=== PATIENT | male | born 1950 | race Caucasian/White ===

== ENCOUNTER → 2017-01-08 | Outpatient (CLI) | payer MEDICARE ==
--- NOTE | 2017-01-08 16:56 | XR ---
EXAMINATION TYPE: XR chest 2V DATE OF EXAM: 01/08/2017 COMPARISON: NONE HISTORY: Cough and shortness of breath TECHNIQUE: Frontal and lateral views of the chest are obtained. FINDINGS: There is no focal air space opacity, pleural effusion, or pneumothorax seen. The cardiac silhouette size is within normal limits. Prominent lung volumes suggests underlying COPD. The osseous structures are intact. IMPRESSION: No acute cardiopulmonary process.
== END | disposition home or self-care (01) ==
LOC: RADXRYALE 15:46
PROVIDERS: ATTEND Physician Assistant Medical
DX: F17.200 Nicotine dependence, unspecified, uncomplicated (principal); R05 Cough; R03.0 Elevated blood-pressure reading, without diagnosis of hypertension
CPT/HCPCS: 71020

== ENCOUNTER → 2018-04-25 | Outpatient (CLI) | payer MEDICARE ==
--- NOTE | 2018-04-25 19:11 | US ---
EXAMINATION TYPE: US bladder DATE OF EXAM: 04/25/2018 COMPARISON: NONE CLINICAL HISTORY: 67-year-old male R35.1 Nocturia. TECHNIQUE: Multiple sonographic images of the bladder are obtained. FINDINGS: Only the left ureteral jet is visualized. The bladder is only partially distended initially and 50 mL. At this volume, the patient felt the urg e to urinate. There is prostatic enlargement noted with soft tissue impressing on to the posterior bladder base. Post Void Residual Volume: 0 mL Only the left ureteral jet is seen during the course of the exam. Extrusion Process Operator notes: volume of partially filled bladder is 49.5 ml. Patient feeling urge to "go". Enla rged prostate seen deforming flour of bladder. Patient emptied bladder completely, no residual image d. IMPRESSION: 1. Possible hyperactive bladder. Patient felt the urge to urinate at a volume of 50 mL. 2. There is complete emptying after the patient voids arguing against urinary retention. 3. This is despite the enlarged prostate gland impressing on to the posterior bladder base.
== END | disposition home or self-care (01) ==
LOC: RADUSWWP 15:18
PROVIDERS: ATTEND Family Medicine
DX: N40.0 Benign prostatic hyperplasia without lower urinary tract symptoms (principal)
CPT/HCPCS: 76857

== ENCOUNTER → 2018-09-19 | Outpatient (CLI) | payer MEDICARE ==
--- NOTE | 2018-09-19 16:45 | CT ---
CT CHEST FOR PULMONARY EMBOLISM. EXAMINATION TYPE: CT angio chest DATE OF EXAM: 09/19/2018 INDICATION: Elevated D-dimer and abnormal pulmonary function test. CT DLP: 576 mGycm, Automated exposure control for dose reduction was used. CONTRAST: Patient injected with 65ml mL of Isovue 370. COMPARISON: None TECHNIQUE: CT of the chest is performed on a spiral scan at 2 mm thick sections. Study is performed with intravenous contrast timed for evaluation for pulmonary embolism. This will limit additional po rtions of the evaluation. 3-D MIP images reconstructed by the technologist are reviewed on the compu ter in the coronal and sagittal planes. FINDINGS: No persistent filling defects are evident to suggest an acute pulmonary embolism. No mediastinal or hilar adenopathy enlarged by CT criteria is evident. A few small shotty lymph node s are within the mediastinum and axillary regions. The ascending aorta diameter at the level of the m ain pulmonary artery is 3.5 cm. The main pulmonary artery diameter at the bifurcation is 2.7 cm. Lung windows are clear. Limited CT section through the upper abdomen. Gallstones within the gallbladder neck. IMPRESSIONS: 1. Cholelithiasis. 2. No acute pulmonary embolism.
== END ==
LOC: RADCTMAIN 13:53
PROVIDERS: ATTEND Family Medicine
DX: R94.2 Abnormal results of pulmonary function studies (principal); R79.1 Abnormal coagulation profile
CPT/HCPCS: 82565; 84520; 71275; 36415; Q9967

== ENCOUNTER → 2018-10-02 | Outpatient (CLI) | payer MEDICARE ==
--- NOTE | 2018-10-02 14:53 | US ---
EXAMINATION TYPE: US venous doppler duplex LE DATE OF EXAM: 10/02/2018 2:01 PM COMPARISON: NONE CLINICAL HISTORY: R60.0 Leg swelling. leg edema for a while now, no h/o dvt SIDE PERFORMED: Bilateral TECHNIQUE: The lower extremity deep venous system is examined utilizing real time linear array sonog lisa with graded compression, doppler sonography and color-flow sonography. VESSELS IMAGED: External Iliac Vein (EIV) Common Femoral Vein Deep Femoral Vein Greater Saphenous Vein * Femoral Vein Popliteal Vein Small Saphenous Vein * Proximal Calf Veins (* superficial vessels) Grayscale, color doppler, spectral doppler imaging performed of the deep veins of the lower extremiti es. There is normal flow, compressibility, vascular waveforms. Right Leg: Appears negative for DVT Left Leg: Appears negative for DVT IMPRESSION: No sonographic evidence of deep venous thrombosis within either lower extremity.
== END | disposition home or self-care (01) ==
LOC: RADUSWWP 13:11
PROVIDERS: ATTEND Family Medicine
DX: R60.0 Localized edema (principal)
CPT/HCPCS: 93970

== ENCOUNTER 2018-10-18 16:48 | Emergency (ER) | payer MEDICARE ==
[2018-10-18 16:54] VITALS: BP 121/76; PULSE 63; RESP 18; TEMP 97.6
--- NOTE | 2018-10-18 17:26 | ED ---
General Adult HPI - General Chief complaint: Dizziness Stated complaint: dizziness Time Seen by Provider: 10/18/18 17:05 Source: patient, RN notes reviewed, old records reviewed Mode of arrival: wheelchair Limitations: no limitations - History of Present Illness Initial comments: 68-year-old male patient passed no history of COPD, cardiac catheterization with stent, hypertension presents to ED after having an approximately two-minute episode of sensation of room spinning around him. Patient also secondary complaint of approximately 2 months of waxing and waning paresthesias in upper and lower extremities. Patient has been undergoing investigations by his primary care provider for this complaint. Patient was scheduled to undergo a CT of his abdomen and his pelvis today when walking in to get his CT he had a sensation of the room spinning about him. Patient states this lasted approximately 2 minutes. Patient denies having this sensation before. Patient denies all other complaints at this time. Patient denies any chest pain shortness of breath abdominal pain nausea vomiting diarrhea. Patient denies any current dizziness, changes in vision, facial droop or upper or lower extremity weakness. Systemic: Pt denies fatigue, myalgia, fever/chills, rash. Pt denies weakness, night sweats, weight loss. Neuro: Pt denies headache, visual disturbances, syncope or pre-syncope. HEENT: Pt denies ocular discharge or irritation, otalgia, rhinorrhea, pharyngitis or notable lymphadenopathy. Cardiopulmonary: Pt denies chest pain, SOB, heart palpitations, dyspnea on exertion. Abdominal/GI: Pt denies abdominal pain, n/v/d. : Pt denies dysuria, burning w/ urination, frequency/urgency. Denies new onset urinary or bowel incontinence. MSK: Pt denies myalgia, loss of strength or function in extremities. Neuro: Pt denies new onset weakness, paresthesias. - Related Data Previous Rx's Medication Instructions Recorded Meclizine [Antivert] 25 mg PO Q6H PRN #20 tab 10/18/18 Allergies Allergy/AdvReac Type Severity Reaction Status Date / Time No Known Allergies Allergy Verified 10/18/18 16:54 Review of Systems ROS Statement: Those systems with pertinent positive or pertinent negative responses have been documented in the HPI. ROS Other: All systems not noted in ROS Statement are negative. Past Medical History Past Medical History: Hypertension, Myocardial Infarction ([place]) History of Any Multi-Drug Resistant Organisms: None Reported Past Surgical History: Heart Catheterization With Stent Additional Past Surgical History / Comment(s): wrist Past Psychological History: Unable to Obtain Smoking Status: Current every day smoker Past Alcohol Use History: None Reported Past Drug Use History: None Reported General Exam - General Exam Comments Initial Comments: Constitutional: NAD, AOX3, Pt has pleasant affect. HEENT: NC/AT, trachea midline, neck supple, no lymphadenopathy. Posterior pharynx non erythematous, without exudates. External ears appear normal, without discharge. Mucous membranes moist. Eyes PERRLA, EOM intact. There is no scleral icterus. No pallor noted. Cardiopulmonary: RRR, no murmurs, rubs or gallops, no JVD noted. Lungs CTAB in anterior and posterior rodriguez. No peripheral edema. Abdominal exam: Abdomen soft and non-distended. Abdomen non-tender to palpation in all 4 quadrants. Bowel sounds active in LLQ. No hepatosplenomegaly. No ecchymosis Neuro: CN II-XII intact. No nuchal rigidity. NIH 0. MSK: No posterior calf tenderness bilaterally, homans sign negative bilaterally. Posterior tibialis and radial pulse +2 bilaterally. Sensation intact in upper and lower extremities. Full active ROM in upper and lower extremities, 5/5 stregnth. Limitations: no limitations Course Vital Signs 10/18/18 16:49 Temperature 97.6 F Pulse Rate 63 Respiratory 18 Rate Blood Pressure 121/76 O2 Sat by Pulse 97 Oximetry Medical Decision Making - Medical Decision Making Prior to workup patient was to be discharged AGAINST MEDICAL ADVICE. Patient states he feels asymptomatic were not like to receive any further evaluation. Patient will be prescribed Antivert for possible vertigo. Explained to patient risks of discharge AMA prior to workup including . Patient verbalized understanding. Patient to follow up with primary care provider tomorrow. Patient will return to ER if condition worsens. - Lab Data Result diagrams: 10/18/18 17:49 10/18/18 17:49 Lab Results 10/18/18 10/18/18 10/18/18 Range/Units 17:49 17:49 17:49 WBC 10.4 (3.8-10.6) k/uL RBC 5.23 (4.30-5.90) m/uL Hgb 14.5 (13.0-17.5) gm/dL Hct 44.9 (39.0-53.0) % MCV 85.7 (80.0-100.0) fL MCH 27.6 (25.0-35.0) pg MCHC 32.2 (31.0-37.0) g/dL RDW 14.6 (11.5-15.5) % Plt Count 263 (150-450) k/uL Neutrophils % 69 % Lymphocytes % 17 % Monocytes % 7 % Eosinophils % 4 % Basophils % 1 % Neutrophils # 7.2 (1.3-7.7) k/uL Lymphocytes # 1.8 (1.0-4.8) k/uL Monocytes # 0.7 (0-1.0) k/uL Eosinophils # 0.5 (0-0.7) k/uL Basophils # 0.1 (0-0.2) k/uL Sodium 138 (137-145) mmol/L Potassium 5.1 (3.5-5.1) mmol/L Chloride 107 (98-107) mmol/L Carbon Dioxide 20 L (22-30) mmol/L Anion Gap 11 mmol/L BUN 72 H (9-20) mg/dL Creatinine 2.56 H (0.66-1.25) mg/dL Est GFR (CKD-EPI)AfAm 28 (>60 ml/min/1.73 sqM) Est GFR (CKD-EPI)NonAf 25 (>60 ml/min/1.73 sqM) Glucose 115 H (74-99) mg/dL Calcium 9.2 (8.4-10.2) mg/dL Total Bilirubin 0.5 (0.2-1.3) mg/dL AST 21 (17-59) U/L ALT 19 L (21-72) U/L Alkaline Phosphatase 84 (38-126) U/L Troponin I <0.012 (0.000-0.034) ng/mL Total Protein 7.8 (6.3-8.2) g/dL Albumin 4.7 (3.5-5.0) g/dL Disposition Clinical Impression: Dizziness Disposition: Left Against Medical Advice Condition: Undetermined Instructions (If sedation given, give patient instructions): Dizziness (ED), Vertigo (ED) Additional Instructions: Patient to adhere to previously discussed treatment plan and will take medication(s) as directed. Patient to follow up with PCP in 1-2 days. Patient to return to ED if symptoms do not improve. Return to ER if condition worsens in any way. Prescriptions: Meclizine [Antivert] 25 mg PO Q6H PRN #20 tab PRN Reason: Dizziness Is patient prescribed a controlled substance at d/c from ED?: No Referrals: Fred Vega MD [Primary Care Provider] - 1-2 days
[2018-10-18 18:05] LABS: Basophils # (A) 0.1 k/uL (0-0.2); Basophils % (A) 1 %; Eosinophils # (A) 0.5 k/uL (0-0.7); Eosinophils % (A) 4 %; HCT 44.9 % (39.0-53.0); HGB 14.5 gm/dL (13.0-17.5); Lymphocytes # (A) 1.8 k/uL (1.0-4.8); Lymphocytes % (A) 17 %; MCH 27.6 pg (25.0-35.0); MCHC 32.2 g/dL (31.0-37.0); MCV 85.7 fL (80.0-100.0); Mean Platelet Volume 7.4; Monocytes # (A) 0.7 k/uL (0-1.0); Monocytes % (A) 7 %; Neutrophils # (A) 7.2 k/uL (1.3-7.7); Neutrophils % (A) 69 %; Platelet Count 263 k/uL (150-450); RBC 5.23 m/uL (4.30-5.90); RDW 14.6 % (11.5-15.5); WBC 10.4 k/uL (3.8-10.6)
[2018-10-18 18:11] LABS: Albumin 4.7 g/dL (3.5-5.0); Calcium 9.2 mg/dL (8.4-10.2); Potassium 5.1 mmol/L (3.5-5.1); Total Bilirubin 0.5 mg/dL (0.2-1.3); Total Protein 7.8 g/dL (6.3-8.2)
== END 2018-10-18 18:55 | disposition left against medical advice (07) ==
LOC: EC 16:48
DX: R42 Dizziness and giddiness (principal); R20.2 Paresthesia of skin; F17.200 Nicotine dependence, unspecified, uncomplicated; I25.2 Old myocardial infarction; Z95.5 Presence of coronary angioplasty implant and graft
CPT/HCPCS: 36415; 80053; 84484; 85025; 99284

== ENCOUNTER → 2018-10-25 | Outpatient (CLI) | payer MEDICARE ==
--- NOTE | 2018-10-25 15:56 | MR ---
EXAMINATION TYPE: MR lumbar spine wo/w con DATE OF EXAM: 10/25/2018 COMPARISON: None HISTORY: Low back pain / Radiculopathy, lumbar TECHNIQUE: Multiplanar, multisequence images of the lumbar spine were acquired utilizing 11.5 mL intravenous Sebastien avist gadolinium contrast. L1-L2: Normal disc appearance without desiccation. No herniation, protrusion or disc bulging. No ca nal stenosis is present. Foramina are patent bilaterally. L2-L3: Mild posterior disc bulge causes only slight anterior mass effect on the thecal sac. No signif icant foraminal encroachment or canal stenosis. L3-L4: Normal disc appearance without desiccation. No herniation, protrusion or disc bulging. No ca nal stenosis is present. Foramina are patent bilaterally. There is some mild facet arthropathy. L4-L5: Normal disc appearance without desiccation. No herniation, protrusion or disc bulging. No ca nal stenosis is present. Foramina are patent bilaterally. L5-S1: Normal disc appearance without desiccation. No herniation, protrusion or disc bulging. No ca nal stenosis is present. Foramina are patent bilaterally. Lumbar segments are intact. No paraspinal masses are identified. Conus medullaris has a normal appe arance. Lumbar vertebral bodies show preserved height and alignment. There is minimal multilevel spon dylosis and endplate discogenic marrow signal change. Some loss of disc signal at intervertebral leve ls compatible with disc desiccation. Vacuum phenomenon suspected at L2-3 disc space. There is no sign ificant spinal stenosis. Focus of increased signal on T1 and T2 weighted sequences in the L2 vertebra l body shows enhancement consistent with hemangioma the skeletal IMPRESSION: Only mild degenerative disc disease.
== END ==
LOC: RADMRIMAIN 10-19 13:16
PROVIDERS: ATTEND Family Medicine
DX: M54.5 Low back pain (principal); M54.16 Radiculopathy, lumbar region; M51.36 Other intervertebral disc degeneration, lumbar region
CPT/HCPCS: 74176; 72158; A9585

== ENCOUNTER → 2018-10-25 | Outpatient (CLI) | payer MEDICARE ==
--- NOTE | 2018-10-25 16:18 | CT ---
EXAMINATION TYPE: CT abdomen pelvis wo con DATE OF EXAM: 10/25/2018 COMPARISON: None HISTORY: abdominal pain and distention CT DLP: 1150.0 mGycm Automated exposure control for dose reduction was used. TECHNIQUE: Helical acquisition of images from the lung bases through the pelvis. Patient received or al contrast only. FINDINGS: Lack of intravenous contrast compromise sensitivity. LUNG BASES: No significant abnormality is appreciated. AORTA: No significant abnormality is appreciated. LIVER/GB: There is a gallstone neck of the gallbladder. Liver shows no mass. PANCREAS: No significant abnormality is seen. SPLEEN: No significant abnormality is seen. ADRENALS: No significant abnormality is seen. KIDNEYS: Cortical cysts are present bilaterally. There is a calcification present at the upper pole t he right kidney punctate be vascular, there is no hydronephrosis. No ureteral calcification. REPRODUCTIVE ORGANS: Prostate shows associated calcification. URINARY BLADDER: There is high attenuation present within the bladder which is indeterminate. Findin gs may be due to contrast-enhanced exam of the lumbar spine performed same date. BOWEL: Diverticular changes noted in the sigmoid colon. No evident appendicitis. FREE AIR: No Free Air is visible. ASCITES: None visible. PELVIC ADENOPATHY: None visualized. RETROPERITONEAL ADENOPATHY: No Retroperitoneal Adenopathy visible. OSSEOUS STRUCTURES: Mild degenerative disc changes visualized spine. IMPRESSION: DIVERTICULOSIS. CHOLELITHIASIS. NONCONTRAST EXAM. FINDINGS IN THE BLADDER DESCRIBED.
== END | disposition home or self-care (01) ==
LOC: RADCTMAIN 10-18 15:57
PROVIDERS: ATTEND Family Medicine
DX: Z53.9 Procedure and treatment not carried out, unspecified reason (principal)
CPT/HCPCS: 74176

== ENCOUNTER 2022-08-15 15:58 | Emergency (ER) | payer MEDICARE ==
[2022-08-15 16:09] VITALS: RESP 18
--- NOTE | 2022-08-15 16:16 | ED ---
Syncope HPI - General Chief Complaint: Syncope Stated Complaint: SYNCOPE Time Seen by Provider: 08/15/22 16:01 Source: patient Mode of arrival: EMS Limitations: no limitations - History of Present Illness Initial Comments: This patient is a 71-year-old man who presents to have evaluation after syncopal episode. The patient states she has been having episodes going back years and no one can get to the bottom of that. He states that generally happens is that he has a coughing spell feels faint and passes out. Today's episode occurred while he was lying in bed. Patient states that he developed a coughing fit, felt awful and then passed out. The patient denies having any pain in the chest when this occurs. He did not note any palpitations or skipped beats. MD Complaint: loss of consciousness Onset/Timin -: hour(s) Prodromal Symptoms: vision changes -: second(s) Witnessed: no Injuries Sustained Associated with Event: None Current Symptoms: back to baseline Context: at rest, other (After coughing episode) Treatments Prior to Arrival: none - Related Data Home Medications Medication Instructions Recorded Confirmed Albuterol Inhaler [Ventolin Hfa 1 - 2 puff INHALATION RT-Q6H PRN 12/23/18 08/15/22 Inhaler] Budesonide/Formoterol Fumarate 2 puff INHALATION RT-BID PRN 12/23/18 08/15/22 [Symbicort 160-4.5 Mcg Inhaler] lisinopriL [Zestril] 20 mg PO DAILY 12/23/18 08/15/22 Atorvastatin [Lipitor] 40 mg PO DAILY 08/15/22 08/15/22 Furosemide [Lasix] 40 mg PO DAILY 08/15/22 08/15/22 Metoprolol Succinate (ER) [Toprol 50 mg PO DAILY 08/15/22 08/15/22 Xl] amLODIPine [Norvasc] 10 mg PO DAILY 08/15/22 08/15/22 Allergies Allergy/AdvReac Type Severity Reaction Status Date / Time No Known Allergies Allergy Verified 08/15/22 17:55 Review of Systems ROS Statement: Those systems with pertinent positive or pertinent negative responses have been documented in the HPI. ROS Other: All systems not noted in ROS Statement are negative. Constitutional: Denies: fever, chills, weakness Eyes: Denies: vision change Respiratory: Reports: as per HPI, cough. Denies: dyspnea, wheezes, hemoptysis Cardiovascular: Reports: syncope. Denies: chest pain, palpitations, edema Gastrointestinal: Denies: abdominal pain, nausea, vomiting, diarrhea Genitourinary: Denies: dysuria, hematuria Musculoskeletal: Denies: back pain Skin: Denies: rash Neurological: Denies: headache, weakness, numbness, confusion Past Medical History Past Medical History: COPD, Hypertension, Myocardial Infarction ([place]) Last Myocardial Infarction Date:: 2000 History of Any Multi-Drug Resistant Organisms: None Reported Past Surgical History: Heart Catheterization With Stent Additional Past Surgical History / Comment(s): RT CATARACT REMOVED Past Anesthesia/Blood Transfusion Reactions: No Reported Reaction Date of Last Stent Placement:: 2000 Past Psychological History: No Psychological Hx Reported Smoking Status: Current every day smoker Past Alcohol Use History: None Reported Past Drug Use History: None Reported - Past Family History Mother Family Medical History: No Reported History General Exam Limitations: no limitations General appearance: alert, in no apparent distress Head exam: Present: atraumatic, normocephalic Eye exam: Present: normal appearance. Absent: scleral icterus, conjunctival injection ENT exam: Present: normal oropharynx Neck exam: Present: normal inspection, full ROM Respiratory exam: Present: wheezes (Trace expiratory wheeze). Absent: respiratory distress, rales, rhonchi, stridor, accessory muscle use, decreased breath sounds, prolonged expiratory Cardiovascular Exam: Present: regular rate, normal rhythm, normal heart sounds. Absent: systolic murmur, diastolic murmur, rubs, gallop GI/Abdominal exam: Present: soft. Absent: distended, tenderness, guarding, rebound, rigid, mass Extremities exam: Present: normal inspection, normal capillary refill. Absent: pedal edema, calf tenderness Back exam: Present: normal inspection. Absent: CVA tenderness (R), CVA tend erness (L) Neurological exam: Present: alert Skin exam: Present: warm, dry, intact, normal color. Absent: rash Course Vital Signs 08/15/22 08/15/22 08/15/22 16:01 16:23 18:12 Temperature 98.7 F Pulse Rate 86 89 85 Respiratory 18 Rate Blood Pressure 137/77 137/77 110/64 O2 Sat by Pulse 96 94 L 96 Oximetry 08/15/22 18:29 Temperature 98.2 F Pulse Rate 85 Respiratory 18 Rate Blood Pressure 110/64 O2 Sat by Pulse 98 Oximetry EKG Findings - EKG Results: EKG: interpreted by CARA STRANGE, sinus rhythm (Rate 86 bpm), normal axis, normal QRS, normal ST/T, no acute changes Medical Decision Making - Medical Decision Making Patient 71-year-old man here with syncopal episode after coughing episode. The patient has had a number of these going back for years. His workup here not remarkable. 12-lead ECG shows sinus rhythm, he did not have any palpitations or chest pain. The patient had chest x-ray which I interpreted as not showing acute infiltrate, congestive heart failure, or pneumothorax. We discussed further evaluation and treatment including roofer apprentice to see if his cough can be moderated. The patient declines admission stating he would rather go home and see a specialist as an outpatient. We discussed return parameters as well. Was pt. sent in by a medical professional or institution (, PA, SUPERVISOR COOLER SERVICE, urgent care, hospital, or residential...) When possible be specific @ -[No] Did you speak to anyone other than the patient for history (EMS, parent, family, police, friend...)? What history was obtained from this source @ -[No] Did you review nursing and triage notes (agree or disagree)? Why? @ -[I reviewed and agree with nursing and triage notes] Were old charts reviewed (outside hosp., previous admission, EMS record, old EKG, old radiological studies, urgent care reports/EKG's, residential records)? Report findings @ -[No old charts were reviewed] Differential Diagnosis (chest pain, altered mental status, abdominal pain women, abdominal pain men, vaginal bleeding, weakness, fever, dyspnea, syncope, headache, dizziness, GI bleed, back pain, seizure, CVA, palpatations, mental health, musculoskeletal)? @ -[Differential Syncope: Valvular disease, hypertrophic cardiomyopathy, pulmonary embolism, tamponade, tachycardia, bradycardia, MN, hypovolemia, hemorrhage, dissection, anemia, intracranial hemorrhage, seizure, hypoglycemia, carbon monoxide poisoning, this is not meant to be an all-inclusive list. EKG interpreted by me (3pts min.). @ -[As above] X-rays interpreted by me (1pt min.). @ -[As above CT interpreted by me (1pt min.). @ -[None done] U/S interpreted by me (1pt. min.). @ -[None done] What testing was considered but not performed or refused? (CT, X-rays, U/S, labs)? Why? @ -[None] What meds were considered but not given or refused? Why? @ -[None] Did you discuss the management of the patient with other professionals (professionals i.e. Dr., PA, SUPERVISOR CO[employer], lab, RT, psych nurse, forensic social worker, dental financial coordinator, teacher, chief investment officer, immigration case manager)? Give summary @ -[No] Was smoking cessation discussed for >3mins.? @ -[yes Was critical care preformed (if so, how long)? @ -[No] Were there social determinants of health that impacted care today? How? (Homelessness, low income, unemployed, alcoholism, drug addiction, transportation, low edu. Level, literacy, decrease access to med. care, group home, rehab)? @ -[No] Was there de-escalation of care discussed even if they declined (Discuss DNR or withdrawal of care, Hospice)? DNR status @ -[No] What co-morbidities impacted this encounter? (DM, HTN, Smoking, COPD, CAD, Cancer, CVA, ARF, Chemo, Hep., AIDS, mental health diagnosis, sleep apnea, morbid obesity)? @ -[COPD Was patient admitted / discharged? Hospital course, mention meds given and route, prescriptions, significant lab abnormalities, going to OR and other pertinent info. @ -[I did recommend admission mainly in relation to patient's COPD, but the patient declined stating he will follow have close follow-up as directed Undiagnosed new problem with uncertain prognosis? @ -[No] Drug Therapy requiring intensive monitoring for toxicity (Heparin, Nitro, Insulin, Cardizem)? @ -[No] Were any procedures done? @ -[No] Diagnosis/symptom? @ -[1. COPD exacerbation 2. Syncopal episode Acute, or Chronic, or Acute on Chronic? @ -[1. Acute on chronic 2. Acute Uncomplicated (without systemic symptoms) or Complicated (systemic symptoms)? @ -[Complicated Side effects of treatment? @ -[No] Exacerbation, Progression, or Severe Exacerbation? @ -[No] Poses a threat to life or bodily function? How? (Chest pain, [place], [place], pneumonia, PE, COPD, DKA, ARF, appy, cholecystitis, CVA, Diverticulitis, Homicidal, Suicidal, threat to staff... and all critical care pts) @ -[Undetermined, though suspect there is risk to life, patient declines to stay - Lab Data Result diagrams: 08/15/22 16:21 08/15/22 16:21 Lab Results 08/15/22 08/15/22 08/15/22 Range/Units 16:21 16:21 16:21 WBC 11.4 H (3.8-10.6) k/uL RBC 5.81 (4.30-5.90) m/uL Hgb 16.5 (13.0-17.5) gm/dL Hct 50.8 (39.0-53.0) % MCV 87.3 (80.0-100.0) fL MCH 28.3 (25.0-35.0) pg MCHC 32.4 (31.0-37.0) g/dL RDW 13.4 (11.5-15.5) % Plt Count 275 (150-450) k/uL MPV 7.5 Neutrophils % 69 % Lymphocytes % 19 % Monocytes % 8 % Eosinophils % 3 % Basophils % 1 % Neutrophils # 7.8 H (1.3-7.7) k/uL Lymphocytes # 2.1 (1.0-4.8) k/uL Monocytes # 0.9 (0-1.0) k/uL Eosinophils # 0.3 (0-0.7) k/uL Basophils # 0.1 (0-0.2) k/uL PT 10.3 (9.0-12.0) sec INR 1.0 (<1.2) APTT 24.6 (22.0-30.0) sec Sodium 141 (137-145) mmol/L Potassium 4.4 (3.5-5.1) mmol/L Chloride 103 (98-107) mmol/L Carbon Dioxide 28 (22-30) mmol/L Anion Gap 10 mmol/L BUN 27 H (9-20) mg/dL Creatinine 1.61 H (0.66-1.25) mg/dL Est GFR (CKD-EPI)AfAm 49 (>60 ml/min/1.73 sqM) Est GFR (CKD-EPI)NonAf 42 (>60 ml/min/1.73 sqM) Glucose 156 H (74-99) mg/dL Plasma Lactic Acid Kory (0.7-2.0) mmol/L Calcium 9.5 (8.4-10.2) mg/dL Total Bilirubin 0.7 (0.2-1.3) mg/dL AST 25 (17-59) U/L ALT 27 (4-49) U/L Alkaline Phosphatase 111 (38-126) U/L Troponin I (0.000-0.034) ng/mL Total Protein 7.7 (6.3-8.2) g/dL Albumin 4.6 (3.5-5.0) g/dL Serum Alcohol mg/dL 08/15/22 08/15/22 08/15/22 Range/Units 16:21 16:46 16:46 WBC (3.8-10.6) k/uL RBC (4.30-5.90) m/uL Hgb (13.0-17.5) gm/dL Hct (39.0-53.0) % MCV (80.0-100.0) fL MCH (25.0-35.0) pg MCHC (31.0-37.0) g/dL RDW (11.5-15.5) % Plt Count (150-450) k/uL MPV Neutrophils % % Lymphocytes % % Monocytes % % Eosinophils % % Basophils % % Neutrophils # (1.3-7.7) k/uL Lymphocytes # (1.0-4.8) k/uL Monocytes # (0-1.0) k/uL Eosinophils # (0-0.7) k/uL Basophils # (0-0.2) k/uL PT (9.0-12.0) sec INR (<1.2) APTT (22.0-30.0) sec Sodium (137-145) mmol/L Potassium (3.5-5.1) mmol/L Chloride (98-107) mmol/L Carbon Dioxide (22-30) mmol/L Anion Gap mmol/L BUN (9-20) mg/dL Creatinine (0.66-1.25) mg/dL Est GFR (CKD-EPI)AfAm (>60 ml/min/1.73 sqM) Est GFR (CKD-EPI)NonAf (>60 ml/min/1.73 sqM) Glucose (74-99) mg/dL Plasma Lactic Acid Kory 1.4 (0.7-2.0) mmol/L Calcium (8.4-10.2) mg/dL Total Bilirubin (0.2-1.3) mg/dL AST (17-59) U/L ALT (4-49) U/L Alkaline Phosphatase (38-126) U/L Troponin I 0.013 (0.000-0.034) ng/mL Total Protein (6.3-8.2) g/dL Albumin (3.5-5.0) g/dL Serum Alcohol <10 mg/dL Disposition Clinical Impression: Syncope, COPD exacerbation Disposition: HOME SELF-CARE Condition: Good Instructions (If sedation given, give patient instructions): Syncope (ED) Is patient prescribed a controlled substance at d/c from ED?: No Referrals: Fred Vega MD [Primary Care Provider] - 1-2 days Shankar Ortiz MD [STAFF PHYSICIAN] - 1-2 days
[2022-08-15 16:32] LABS: Basophils # (A) 0.1 k/uL (0-0.2); Basophils % (A) 1 %; Eosinophils # (A) 0.3 k/uL (0-0.7); Eosinophils % (A) 3 %; HCT 50.8 % (39.0-53.0); HGB 16.5 gm/dL (13.0-17.5); Lymphocytes # (A) 2.1 k/uL (1.0-4.8); Lymphocytes % (A) 19 %; MCH 28.3 pg (25.0-35.0); MCHC 32.4 g/dL (31.0-37.0); MCV 87.3 fL (80.0-100.0); Mean Platelet Volume 7.5; Monocytes # (A) 0.9 k/uL (0-1.0); Monocytes % (A) 8 %; Neutrophils # (A) 7.8 k/uL (1.3-7.7); Neutrophils % (A) 69 %; Platelet Count 275 k/uL (150-450); RBC 5.81 m/uL (4.30-5.90); RDW 13.4 % (11.5-15.5); WBC 11.4 k/uL (3.8-10.6)
[2022-08-15 16:40] LABS: Partial Thromboplastin Time 24.6 sec (22.0-30.0); Prothrombin Time 10.3 sec (9.0-12.0)
[2022-08-15 16:43] LABS: Albumin 4.6 g/dL (3.5-5.0); Calcium 9.5 mg/dL (8.4-10.2); Potassium 4.4 mmol/L (3.5-5.1); Total Bilirubin 0.7 mg/dL (0.2-1.3); Total Protein 7.7 g/dL (6.3-8.2)
--- NOTE | 2022-08-15 17:00 | XR ---
EXAMINATION TYPE: XR chest 2V DATE OF EXAM: 08/15/2022 COMPARISON: 01/08/2017 HISTORY: Syncope TECHNIQUE: 2 views FINDINGS: Heart and mediastinum are normal. Lungs are clear. Diaphragm is normal. Bony thorax is inta ct. IMPRESSION: Normal chest. No change.
[2022-08-15] MEDS ORDERED: SODIUM CHLORIDE 0.9% 500 ML 500 ML IV STA (17:17)
[2022-08-15 18:14] VITALS: BP 110/64; PULSE 85
[2022-08-15 18:31] VITALS: TEMP 98.2
== END 2022-08-15 18:31 | disposition home or self-care (01) ==
LOC: EC 15:58
DX: J44.1 Chronic obstructive pulmonary disease with (acute) exacerbation (principal); R55 Syncope and collapse; I10 Essential (primary) hypertension; I25.2 Old myocardial infarction; F17.200 Nicotine dependence, unspecified, uncomplicated; Z79.51 Long term (current) use of inhaled steroids; Z79.899 Other long term (current) drug therapy
CPT/HCPCS: 36415; 93005; 80053; 83605; 84484; 85025; 85610; 85730; 71046; 99285; G0480; 80320

== ENCOUNTER 2023-07-21 14:40 | Emergency (ER) | payer MEDICARE ==
--- NOTE | 2023-07-21 14:52 | ED ---
General Adult HPI - General Source: patient, RN notes reviewed <Malik Maria - Last Filed: 07/21/23 14:52> <Enedina Cabrera - Last Filed: 07/21/23 18:04> - General Stated complaint: Cough Time Seen by Provider: 07/21/23 14:52 - History of Present Illness Initial comments: Patient is a 72-year-old male presenting to ER with chief complaint of hemoptysis. Patient states he has been out of his blood pressure medication for weeks now. Does not know if he is on a blood thinner. He states he is feeling "off" (Malik Maria) - Related Data Home Medications Medication Instructions Recorded Confirmed Albuterol Inhaler [Ventolin Hfa 1 - 2 puff INHALATION RT-Q6H PRN 12/23/18 08/15/22 Inhaler] Budesonide/Formoterol Fumarate 2 puff INHALATION RT-BID PRN 12/23/18 08/15/22 [Symbicort 160-4.5 Mcg Inhaler] Previous Rx's Medication Instructions Recorded Albuterol Nebulized [Ventolin 2.5 mg INHALATION Q4H PRN #75 ml 07/21/23 Nebulized] Atorvastatin [Lipitor] 40 mg PO DAILY #30 tab 07/21/23 Codeine Phosphate/Guaifenesin 5 ml PO Q6H 3 Days #60 ml 07/21/23 [Codeine Phosphate/Guaifenesin 10-100 mg/5 ml] Furosemide [Lasix] 40 mg PO DAILY #30 tab 07/21/23 Metoprolol Succinate (ER) [Toprol 50 mg PO DAILY #30 tab 07/21/23 Xl] amLODIPine [Norvasc] 10 mg PO DAILY #30 tab 07/21/23 lisinopriL [Zestril] 20 mg PO DAILY #30 tab 07/21/23 predniSONE [Deltasone] 20 mg PO BID #10 tab 07/21/23 Allergies Allergy/AdvReac Type Severity Reaction Status Date / Time No Known Allergies Allergy Verified 08/15/22 17:55 Review of Systems ROS Other: All systems not noted in ROS Statement are negative. <Malik Maria - Last Filed: 07/21/23 14:52> ROS Other: All systems not noted in ROS Statement are negative. <Enedina Cabrera - Last Filed: 07/21/23 18:04> ROS Statement: Those systems with pertinent positive or pertinent negative responses have been documented in the HPI. Past Medical History Past Medical History: COPD, Hypertension, Myocardial Infarction ([place]) Last Myocardial Infarction Date:: 2000 History of Any Multi-Drug Resistant Organisms: None Reported Past Surgical History: Heart Catheterization With Stent Additional Past Surgical History / Comment(s): RT CATARACT REMOVED Past Anesthesia/Blood Transfusion Reactions: No Reported Reaction Date of Last Stent Placement:: 2000 Past Psychological History: No Psychological Hx Reported Smoking Status: Current every day smoker Past Alcohol Use History: None Reported Past Drug Use History: None Reported - Past Family History Mother Family Medical History: No Reported History <Malik Maria - Last Filed: 07/21/23 14:52> General Exam <Malik Maria - Last Filed: 07/21/23 14:52> - General Exam Comments Initial Comments: Visual Physical Exam Vital signs reviewed General: Well-appearing, nontoxic, no acute distress. Head: Normocephalic, atraumatic Eyes: PERRLA, EOMI ENT: Airway patent Chest: Nonlabored breathing Skin: No visual rash, normal skin tone Neuro: Alert and oriented 3 Musculoskeletal: No gross abnormalities (Malik Maria) Course Vital Signs 07/21/23 14:59 Temperature 98.5 F Pulse Rate 85 Respiratory 20 Rate Blood Pressure 237/103 O2 Sat by Pulse 97 Oximetry Medical Decision Making <Malik Maria - Last Filed: 07/21/23 14:52> - Lab Data Result diagrams: 07/21/23 15:43 07/21/23 15:43 <Enedina Cabrera - Last Filed: 07/21/23 18:04> - Medical Decision Making I performed the quick note portion of this chart. Electronically signed by Malik Maria PA-C (Malik Maria) - Lab Data Lab Results 07/21/23 07/21/23 07/21/23 Range/Units 15:43 15:43 15:43 WBC 9.4 (3.8-10.6) k/uL RBC 5.62 (4.30-5.90) m/uL Hgb 15.7 (13.0-17.5) gm/dL Hct 48.4 (39.0-53.0) % MCV 86.1 (80.0-100.0) fL MCH 28.0 (25.0-35.0) pg MCHC 32.5 (31.0-37.0) g/dL RDW 14.4 (11.5-15.5) % Plt Count 209 (150-450) k/uL MPV 7.9 PT 10.3 (10.0-12.5) sec INR 0.9 (<1.2) APTT 25.2 (22.0-30.0) sec D-Dimer 0.58 (<0.60) mg/L FEU Sodium 139 (137-145) mmol/L Potassium 4.5 (3.5-5.1) mmol/L Chloride 106 (98-107) mmol/L Carbon Dioxide 25 (22-30) mmol/L Anion Gap 8 mmol/L BUN 23 H (9-20) mg/dL Creatinine 1.22 (0.66-1.25) mg/dL Est GFR (CKD-EPI)AfAm 68 (>60 ml/min/1.73 sqM) Est GFR (CKD-EPI)NonAf 59 (>60 ml/min/1.73 sqM) Glucose 123 H (74-99) mg/dL Calcium 9.2 (8.4-10.2) mg/dL Total Bilirubin 0.7 (0.2-1.3) mg/dL AST 25 (17-59) U/L ALT 26 (4-49) U/L Alkaline Phosphatase 98 (38-126) U/L Total Protein 7.3 (6.3-8.2) g/dL Albumin 4.4 (3.5-5.0) g/dL Influenza Type A (PCR) (Not Detectd) Influenza Type B (PCR) (Not Detectd) RSV (PCR) (Not Detectd) SARS-CoV-2 (PCR) (Not Detectd) 07/21/23 Range/Units 15:43 WBC (3.8-10.6) k/uL RBC (4.30-5.90) m/uL Hgb (13.0-17.5) gm/dL Hct (39.0-53.0) % MCV (80.0-100.0) fL MCH (25.0-35.0) pg MCHC (31.0-37.0) g/dL RDW (11.5-15.5) % Plt Count (150-450) k/uL MPV PT (10.0-12.5) sec INR (<1.2) APTT (22.0-30.0) sec D-Dimer (<0.60) mg/L FEU Sodium (137-145) mmol/L Potassium (3.5-5.1) mmol/L Chloride (98-107) mmol/L Carbon Dioxide (22-30) mmol/L Anion Gap mmol/L BUN (9-20) mg/dL Creatinine (0.66-1.25) mg/dL Est GFR (CKD-EPI)AfAm (>60 ml/min/1.73 sqM) Est GFR (CKD-EPI)NonAf (>60 ml/min/1.73 sqM) Glucose (74-99) mg/dL Calcium (8.4-10.2) mg/dL Total Bilirubin (0.2-1.3) mg/dL AST (17-59) U/L ALT (4-49) U/L Alkaline Phosphatase (38-126) U/L Total Protein (6.3-8.2) g/dL Albumin (3.5-5.0) g/dL Influenza Type A (PCR) Not Detected (Not Detectd) Influenza Type B (PCR) Not Detected (Not Detectd) RSV (PCR) Not Detected (Not Detectd) SARS-CoV-2 (PCR) Not Detected (Not Detectd) Disposition <Malik Maria - Last Filed: 07/21/23 14:52> Is patient prescribed a controlled substance at d/c from ED?: Yes When asked, does pt state using other controlled substances?: No If prescribed controlled substance>3 days was MAPS reviewed?: Prescribed <3 Days Time of Disposition: 18:03 <Enedina Cabrera - Last Filed: 07/21/23 18:04> Clinical Impression: Hemoptysis, COPD (chronic obstructive pulmonary disease), Bronchospasm Disposition: HOME SELF-CARE Condition: Stable Instructions (If sedation given, give patient instructions): Coughing Up Blood (Hemoptysis) (ED) Additional Instructions: Please use the breathing treatments every 4 hours. Start taking the steroids on Sunday. Take the cough syrup if you want. Resume your blood pressure medications. If you do not have improvement in your symptoms in 48 hours, return to the emergency department Prescriptions: Codeine Phosphate/Guaifenesin [Codeine Phosphate/Guaifenesin 10-100 mg/5 ml] 5 ml PO Q6H 3 Days #60 ml predniSONE [Deltasone] 20 mg PO BID #10 tab Furosemide [Lasix] 40 mg PO DAILY #30 tab Atorvastatin [Lipitor] 40 mg PO DAILY #30 tab amLODIPine [Norvasc] 10 mg PO DAILY #30 tab Metoprolol Succinate (ER) [Toprol Xl] 50 mg PO DAILY #30 tab Albuterol Nebulized [Ventolin Nebulized] 2.5 mg INHALATION Q4H PRN #75 ml PRN Reason: difficulty in breathing lisinopriL [Zestril] 20 mg PO DAILY #30 tab
[2023-07-21 15:27] VITALS: BP 237/103; RESP 20; TEMP 98.5
--- NOTE | 2023-07-21 15:50 | XR ---
EXAMINATION TYPE: XR chest 2V DATE OF EXAM: 07/21/2023 3:46 PM CLINICAL INDICATION:Male, 72 years old with history of Hemoptysis; H COMPARISON: Chest radiographs from 08/15/2022 TECHNIQUE: XR chest 2V Frontal and lateral views of the chest. FINDINGS: Lungs/Pleura: There is flattening of the diaphragm with increased lucency of the lungs. No evidence o f pneumothorax, pleural effusion or focal consolidation. Pulmonary vascularity: Unremarkable. Heart/mediastinum: Cardiomediastinal silhouette is unremarkable. Atherosclerotic calcifications are seen in the aorta. Musculoskeletal: No acute osseous pathology. IMPRESSION: 1. No acute cardiopulmonary disease process. 2. COPD changes.
[2023-07-21 16:42] LABS: HCT 48.4 % (39.0-53.0); HGB 15.7 gm/dL (13.0-17.5); MCHC 32.5 g/dL (31.0-37.0); MCV 86.1 fL (80.0-100.0); Mean Platelet Volume 7.9; Platelet Count 209 k/uL (150-450); RBC 5.62 m/uL (4.30-5.90); RDW 14.4 % (11.5-15.5); WBC 9.4 k/uL (3.8-10.6)
[2023-07-21 16:57] LABS: INR 0.9 (<1.2); Partial Thromboplastin Time 25.2 sec (22.0-30.0); Prothrombin Time 10.3 sec (10.0-12.5)
[2023-07-21 16:59] LABS: ALT 26 U/L (4-49); AST 25 U/L (17-59); African American GFR (CKD) 68 (>60 ml/min/1.73 sqM); Albumin 4.4 g/dL (3.5-5.0); Alkaline Phosphatase 98 U/L (38-126); Anion Gap 8 mmol/L; Blood Urea Nitrogen 23 mg/dL (9-20); Calcium 9.2 mg/dL (8.4-10.2); Carbon Dioxide 25 mmol/L (22-30); Chloride 106 mmol/L (98-107); Glucose 123 mg/dL (74-99); Non-African American GFR(CKD) 59 (>60 ml/min/1.73 sqM); Potassium 4.5 mmol/L (3.5-5.1); Sodium 139 mmol/L (137-145); Total Bilirubin 0.7 mg/dL (0.2-1.3); Total Protein 7.3 g/dL (6.3-8.2)
[2023-07-21] MEDS: predniSONE 20 MG TAB PO STA (17:57)
[2023-07-21] MEDS: IPRATROPIUM-ALBUTEROL 3 ML NEB INHALATION STA (18:13)
[2023-07-21 18:26] VITALS: PULSE 88
== END 2023-07-21 18:26 | disposition home or self-care (01) ==
LOC: EC 14:40
DX: R04.2 Hemoptysis (principal); J44.9 Chronic obstructive pulmonary disease, unspecified; J98.01 Acute bronchospasm; I10 Essential (primary) hypertension; I25.2 Old myocardial infarction; F17.200 Nicotine dependence, unspecified, uncomplicated; Z79.899 Other long term (current) drug therapy; Z79.51 Long term (current) use of inhaled steroids; Z20.822 Contact with and (suspected) exposure to COVID-19
CPT/HCPCS: 36415; 94640; 85379; 80053; 85027; 85610; 85730; 87636; 71046; 99283; J7512

== ENCOUNTER 2024-04-24 16:47 | Inpatient (IN) | payer MEDICARE ==
[2024-04-24 17:01] VITALS: TEMP 98.3
[2024-04-24] MEDS: ASPIRIN 81 MG PO STA (17:15)
[2024-04-24] MEDS: LABETALOL 5 MG/ML VIAL MDV IVP STA (17:16)
[2024-04-24 17:19] LABS: Basophils # (A) 0.1 k/uL (0-0.2); Basophils % (A) 1 %; Eosinophils # (A) 0.3 k/uL (0-0.7); Eosinophils % (A) 3 %; HCT 52.4 % (39.0-53.0); HGB 16.7 gm/dL (13.0-17.5); Lymphocytes # (A) 1.6 k/uL (1.0-4.8); Lymphocytes % (A) 17 %; MCHC 31.8 g/dL (31.0-37.0); Mean Platelet Volume 7.4; Monocytes # (A) 0.6 k/uL (0-1.0); Monocytes % (A) 6 %; Neutrophils # (A) 6.8 k/uL (1.3-7.7); Neutrophils % (A) 72 %; Platelet Count 211 k/uL (150-450); RBC 6.17 m/uL (4.30-5.90); RDW 14.4 % (11.5-15.5); WBC 9.5 k/uL (3.8-10.6)
[2024-04-24 17:30] LABS: ALT 21 U/L (4-49); AST 34 U/L (17-59); African American GFR (CKD) 68 (>60 ml/min/1.73 sqM); Albumin 4.9 g/dL (3.5-5.0); Alkaline Phosphatase 100 U/L (38-126); Anion Gap 9 mmol/L; Blood Urea Nitrogen 24 mg/dL (9-20); Calcium 9.2 mg/dL (8.4-10.2); Carbon Dioxide 29 mmol/L (22-30); Chloride 100 mmol/L (98-107); Glucose 136 mg/dL (74-99); Non-African American GFR(CKD) 59 (>60 ml/min/1.73 sqM); Sodium 138 mmol/L (137-145)
[2024-04-24 17:32] LABS: Potassium 4.8 mmol/L (3.5-5.1); Total Bilirubin 0.9 mg/dL (0.2-1.3); Total Protein 8.4 g/dL (6.3-8.2)
[2024-04-24 17:33] LABS: Partial Thromboplastin Time 26.8 sec (22.0-30.0); Prothrombin Time 10.7 sec (10.0-12.5)
[2024-04-24 17:38] LABS: NT-Pro-B-Type Natriuretic Pept 177 pg/mL
[2024-04-24] MEDS: NITROGLYCERIN OINT 1 INCH/GM PACKET TOPICAL STA (17:59)
--- NOTE | 2024-04-24 18:01 | ED ---
General Adult HPI - General Chief complaint: Chest Pain Stated complaint: chest pain Time Seen by Provider: 04/24/24 16:55 Source: patient, RN notes reviewed, old records reviewed Mode of arrival: EMS Limitations: no limitations - History of Present Illness Initial comments: This is a 73-year-old male who presents emergency department stating he has a h istory of high blood pressure high cholesterol and smokes. Patient states he has been out of his hypoplasia medications for at least 3 months because he cannot get into see the doctor. Patient states he has been having some chest pain lately but last night it became severe it did eventually go away but it came back again today it was very severe radiated to his right arm and at that point time he decided to come to the emergency department. Patient denies any diaphoretic episode. Patient denies any shortness of breath. Patient denies any nausea or vomiting. Patient denies any abdominal pain patient [place] any swelling to the legs or calf tenderness - Related Data Home Medications Medication Instructions Recorded Confirmed No Known Home Medications 04/24/24 04/24/24 Allergies Allergy/AdvReac Type Severity Reaction Status Date / Time No Known Allergies Allergy Verified 04/24/24 17:19 Review of Systems ROS Statement: Those systems with pertinent positive or pertinent negative responses have been documented in the HPI. ROS Other: All systems not noted in ROS Statement are negative. Past Medical History Past Medical History: COPD, Hypertension, Myocardial Infarction ([place]) Last Myocardial Infarction Date:: 2000 History of Any Multi-Drug Resistant Organisms: None Reported Past Surgical History: Heart Catheterization With Stent Additional Past Surgical History / Comment(s): RT CATARACT REMOVED Past Anesthesia/Blood Transfusion Reactions: No Reported Reaction Date of Last Stent Placement:: 2000 Past Psychological History: No Psychological Hx Reported Smoking Status: Current every day smoker Past Alcohol Use History: None Reported Past Drug Use History: None Reported - Past Family History Mother Family Medical History: No Reported History General Exam - General Exam Comments Initial Comments: GENERAL: Patient is well-developed and well-nourished. Patient is nontoxic and well- hydrated and is in mild distress. ENT: Neck is soft and supple. No significant lymphadenopathy is noted. Oropharynx is clear. Moist mucous membranes. Neck has full range of motion without eliciting any pain. EYES: The sclera were anicteric and conjunctiva were pink and moist. Extraocular movements were intact and pupils were equal round and reactive to light. Eyelids were unremarkable. PULMONARY: Unlabored respirations. Good breath sounds bilaterally. No audible rales rhonchi or wheezing was noted. CARDIOVASCULAR: There is a regular rate and rhythm without any murmurs gallops or rubs. ABDOMEN: Soft and nontender with normal bowel sounds. SKIN: Skin is clear with no lesions or rashes and otherwise unremarkable. NEUROLOGIC: Patient is alert and oriented x3. Cranial nerves II through XII are grossly intact. Motor and sensory are also intact. Normal speech, volume and content. Symmetrical smile. MUSCULOSKELETAL: Normal extremities with adequate strength and full range of motion. LYMPHATICS: No significant lymphadenopathy is noted PSYCHIATRIC: Normal psychiatric evaluation. Limitations: no limitations Course Vital Signs 04/24/24 04/24/24 04/24/24 16:48 17:51 18:01 Temperature 98.3 F Pulse Rate 78 66 62 Respiratory 18 18 18 Rate Blood Pressure 229/127 187/95 193/111 O2 Sat by Pulse 100 96 97 Oximetry 04/24/24 04/24/24 18:32 18:47 Temperature Pulse Rate 68 67 Respiratory 18 18 Rate Blood Pressure 198/107 189/95 O2 Sat by Pulse Oximetry Medical Decision Making - Medical Decision Making EKG is interpreted by myself. EKG shows sinus rhythm at 73 bpm ME is 181 QRS is 108 QT interval 369 QTc is 395. Patient's EKG shows no ST segment minimal ST segment ovation V2 V3, patient has no chest pain currently Was pt. sent in by a medical professional or institution (, PA, PRODUCTION CONTROL PLANNER, urgent care, hospital, or long term...) When possible be specific @ -No Did you speak to anyone other than the patient for history (EMS, parent, family, police, friend...)? What history was obtained from this source @ -No Did you review nursing and triage notes (agree or disagree)? Why? @ -I reviewed and agree with nursing and triage notes Were old charts reviewed (outside hosp., previous admission, EMS record, old EKG, old radiological studies, urgent care reports/EKG's, long term records)? Report findings @ -No old charts were reviewed Differential Diagnosis? @ -Differential Chest Pain: Stable Angina, Unstable Angina, STEMI, NSTEMI Aortic Dissection, Pneumothorax, Musculoskeletal, Esophageal Spasm GERD, Cholecystitis, Pancreatitis, Zoster, this is not meant to be an all-inclusive list. EKG interpreted by me (3pts min.). @ -As above X-rays interpreted by me (1pt min.). @ -Chest x-ray shows no acute normality CT interpreted by me (1pt min.). @ -None done U/S interpreted by me (1pt. min.). @ -None done What testing was considered but not performed or refused? (CT, X-rays, U/S, labs)? Why? @ -None What meds were considered but not given or refused? Why? @ -None Did you discuss the management of the patient with other professionals (professionals i.e. Dr., PA, PRODUCTION CONTROL PLANNER, lab, RT, psych nurse, social services analyst, urgent care physician, teacher, personnel officer, disability case manager)? Give summary @ -Spoke with Dr. Vega he agreed to admit the patient I admitted the patient I wrote admitting orders Was smoking cessation discussed for >3mins.? @ -Yes Was critical care preformed (if so, how long)? @ -No Were there social determinants of health that impacted care today? How? (Homelessness, low income, unemployed, alcoholism, drug addiction, transportation, low edu. Level, literacy, decrease access to med. care, alf, rehab)? @ -No Was there de-escalation of care discussed even if they declined (Discuss DNR or withdrawal of care, Hospice)? DNR status @ -No What co-morbidities impacted this encounter? (DM, HTN, Smoking, COPD, CAD, C ancer, CVA, ARF, Chemo, Hep., AIDS, mental health diagnosis, sleep apnea, morbid obesity)? @ -None Was patient admitted / discharged? Hospital course, mention meds given and route, prescriptions, significant lab abnormalities, going to OR and other pertinent info. @ -Patient had no chest pain while in the emergency department however his troponin was elevated at 0.2 so I started the patient on heparin and admitted the patient. Patient was very disgruntled about being admitted but he states that he would stay. I spoke with Dr. Vega he agreed to admit the patient admit the patient regarding her Undiagnosed new problem with uncertain prognosis? @ -No Drug Therapy requiring intensive monitoring for toxicity (Heparin, Nitro, Insulin, Cardizem)? @ -No Were any procedures done? @ -No Diagnosis/symptom? @ -NSTEMI Acute, or Chronic, or Acute on Chronic? @ -Acute Uncomplicated (without systemic symptoms) or Complicated (systemic symptoms)? @ -Complicated Side effects of treatment? @ -No Exacerbation, Progression, or Severe Exacerbation? @ -No Poses a threat to life or bodily function? How? (Chest pain, [place], [place], pneumonia, PE, COPD, DKA, ARF, appy, cholecystitis, CVA, Diverticulitis, Homicidal, Suicidal, threat to staff... and all critical care pts) @ -Yes this can lead to dysfunction of the heart and poor perfusion and endorgan dysfunction - Lab Data Result diagrams: 04/24/24 17:11 04/24/24 17:11 Lab Results 04/24/24 04/24/24 04/24/24 Range/Units 17:11 17:11 17:11 WBC 9.5 (3.8-10.6) k/uL RBC 6.17 H (4.30-5.90) m/uL Hgb 16.7 (13.0-17.5) gm/dL Hct 52.4 (39.0-53.0) % MCV 85.0 (80.0-100.0) fL MCH 27.0 (25.0-35.0) pg MCHC 31.8 (31.0-37.0) g/dL RDW 14.4 (11.5-15.5) % Plt Count 211 (150-450) k/uL MPV 7.4 Neutrophils % 72 % Lymphocytes % 17 % Monocytes % 6 % Eosinophils % 3 % Basophils % 1 % Neutrophils # 6.8 (1.3-7.7) k/uL Lymphocytes # 1.6 (1.0-4.8) k/uL Monocytes # 0.6 (0-1.0) k/uL Eosinophils # 0.3 (0-0.7) k/uL Basophils # 0.1 (0-0.2) k/uL PT 10.7 (10.0-12.5) sec INR 1.0 (<1.2) APTT 26.8 (22.0-30.0) sec Sodium 138 (137-145) mmol/L Potassium 4.8 (3.5-5.1) mmol/L Chloride 100 (98-107) mmol/L Carbon Dioxide 29 (22-30) mmol/L Anion Gap 9 mmol/L BUN 24 H (9-20) mg/dL Creatinine 1.21 (0.66-1.25) mg/dL Est GFR (CKD-EPI)AfAm 68 (>60 ml/min/1.73 sqM) Est GFR (CKD-EPI)NonAf 59 (>60 ml/min/1.73 sqM) Glucose 136 H (74-99) mg/dL Calcium 9.2 (8.4-10.2) mg/dL Magnesium 2.0 (1.6-2.3) mg/dL Total Bilirubin 0.9 (0.2-1.3) mg/dL AST 34 (17-59) U/L ALT 21 (4-49) U/L Alkaline Phosphatase 100 (38-126) U/L Troponin I (0.000-0.034) ng/mL NT-Pro-B Natriuret Pep 177 pg/mL Total Protein 8.4 H (6.3-8.2) g/dL Albumin 4.9 (3.5-5.0) g/dL 04/24/24 Range/Units 17:11 WBC (3.8-10.6) k/uL RBC (4.30-5.90) m/uL Hgb (13.0-17.5) gm/dL Hct (39.0-53.0) % MCV (80.0-100.0) fL MCH (25.0-35.0) pg MCHC (31.0-37.0) g/dL RDW (11.5-15.5) % Plt Count (150-450) k/uL MPV Neutrophils % % Lymphocytes % % Monocytes % % Eosinophils % % Basophils % % Neutrophils # (1.3-7.7) k/uL Lymphocytes # (1.0-4.8) k/uL Monocytes # (0-1.0) k/uL Eosinophils # (0-0.7) k/uL Basophils # (0-0.2) k/uL PT (10.0-12.5) sec INR (<1.2) APTT (22.0-30.0) sec Sodium (137-145) mmol/L Potassium (3.5-5.1) mmol/L Chloride (98-107) mmol/L Carbon Dioxide (22-30) mmol/L Anion Gap mmol/L BUN (9-20) mg/dL Creatinine (0.66-1.25) mg/dL Est GFR (CKD-EPI)AfAm (>60 ml/min/1.73 sqM) Est GFR (CKD-EPI)NonAf (>60 ml/min/1.73 sqM) Glucose (74-99) mg/dL Calcium (8.4-10.2) mg/dL Magnesium (1.6-2.3) mg/dL Total Bilirubin (0.2-1.3) mg/dL AST (17-59) U/L ALT (4-49) U/L Alkaline Phosphatase (38-126) U/L Troponin I 0.211 H* (0.000-0.034) ng/mL NT-Pro-B Natriuret Pep pg/mL Total Protein (6.3-8.2) g/dL Albumin (3.5-5.0) g/dL Disposition Clinical Impression: Acute non-ST elevation myocardial infarction (NSTEMI) Disposition: ADMITTED IP TO THIS HOSP Referrals: Fred Vega MD [Primary Care Provider] - 1-2 days Time of Disposition: 19:28
--- NOTE | 2024-04-24 18:10 | XR ---
EXAMINATION TYPE: XR chest 2V DATE OF EXAM: 04/24/2024 6:02 PM CLINICAL INDICATION:Male, 73 years old with history of Chest Pain; [facility] COMPARISON: Chest radiographs from 07/21/2023. TECHNIQUE: XR chest 2V Frontal view of the chest. FINDINGS: Lungs/Pleura: There is no evidence of pleural effusion, focal consolidation, or pneumothorax. Diaphr agms are slightly flattened with lucent and mildly hyperinflated appearance of the lungs. Pulmonary vascularity: Unremarkable. Heart/mediastinum: Cardiomediastinal silhouette is unremarkable. Musculoskeletal: No acute osseous pathology. Other findings: None IMPRESSION: 1. No acute cardiopulmonary disease/process. 2. Emphysematous changes. [facility], , 04/24/2024 6:08 PM
[2024-04-24] MEDS: HEPARIN SOD,PORK IN 0.45% NACL 25,000 UNIT in 0.45% NACL 1 250ML.BAG IV SCH (18:29)
[2024-04-24] MEDS: HEPARIN SODIUM 1,000 UN/ML (10ML VL) IV ONE (18:30)
[2024-04-24 19:11] VITALS: RESP 18
[2024-04-24] MEDS ORDERED: NITROGLYCERIN SL TABS 0.4 MG TAB SUBLINGUAL PRN (19:28)
[2024-04-24] MEDS: NITROGLYCERIN OINT 1 INCH/GM PACKET TOPICAL SCH (23:11)
[2024-04-25 01:18] VITALS: BP 163/79; PULSE 82
[2024-04-25] MEDS: HEPARIN SODIUM 1,000 UN/ML (10ML VL) IV PRN (04:19)
[2024-04-25 08:49] LABS: Chol/HDL Ratio 6.82 Ratio; LDL Cholesterol,Calculated 158.9 mg/dL (0.0-131.0)
[2024-04-25] MEDS ORDERED: ASPIRIN 81 MG PO SCH (09:00)
[2024-04-25] MEDS ORDERED: ASPIRIN 325 MG TAB PO SCH (09:00)
--- NOTE | 2024-04-26 00:55 | HP ---
HISTORY AND PHYSICAL CHIEF COMPLAINT: Chest pain, shortness of breath, and malignant hypertension. HISTORY OF PRESENT ILLNESS: This is another admission for this 73-year-old white gentleman. He has been a chronic and very heavy smoker for years. He presented to the office several years ago with extremely high blood pressure. He was started on medication, blood pressure was brought down. He is feeling better. He has not been seen since January 11, 2023, however. He has not been taking any medication. He came to the emergency room with chest pain, shortness of breath, and a blood pressure of 230/130 with elevated troponin. He describes the pain as being intense and associated with diaphoresis and shortness of breath. REVIEW OF SYSTEMS: He has had no neurologic problems, syncope, confusion, hemoptysis, history of myocardial infarction, murmurs, etc. Past medical history, family history, personal and social histories are otherwise unremarkable. He continues to smoke and is not taking any medication. PHYSICAL EXAMINATION: VITAL SIGNS: Blood pressure is 230/130 with respirations of 38, and a pulse of 94 and regular. HEAD, EARS, EYES, NOSE, MOUTH AND THROAT: Normal. NECK: Neck veins are not distended. Carotids were palpable and there is no bruit heard. CHEST: Demonstrated poor breath sounds with increased AP diameter. CARDIAC: Demonstrated sinus tachycardia. ABDOMEN: Soft, nontender. EXTREMITIES: Normal. NEUROLOGICAL: He is intact. ASSESSMENT: He is admitted to the hospital with diagnoses of, 1. Non ST elevation myocardial infarction. 2. Malignant hypertension. 3. Chronic obstructive pulmonary disease. PLAN: 1. Bed rest. 2. IV fluids. 3. Serial EKGs and enzymes. 4. IV heparin. 5. Cardiology consult. MMODL / IJN: [id number] /
--- NOTE | 2024-04-26 03:02 | DS ---
DISCHARGE SUMMARY CHIEF COMPLAINT: Chest pain, shortness of breath, hypertension, and NSTEMI. HISTORY OF PRESENT ILLNESS AND PHYSICAL EXAM: Details of this man's history and physical can be found in the initial workup. LABORATORY STUDIES: While he was in the hospital, he had laboratory studies, details of which can be found in the laboratory section of his chart. COURSE IN THE HOSPITAL: After admission, he was placed on bedrest and started on intravenous fluids and he was to be seen by Cardiology. He became uncooperative and argumentative and stated that he would not stay in the hospital. He signed out against medical advice. FINAL DIAGNOSES: 1. Acute non-ST elevated myocardial infarction. 2. Coronary artery disease. 3. Malignant hypertension. 4. Chronic obstructive pulmonary disease. OPERATIONS: None. CONSULTATIONS: Cardiology. CHRISTIAN / YOBANI: [id number] /
--- NOTE | 2024-04-28 16:42 | CDI ---
Documentation Clarification Form Date: 04/28/2024 04:29:08 PM From: Shannon Arriola Phone: Admit Date: 04/24/2024 07:30:00 PM Patient Name: Johnie Tirado Visit Number: [id number] Discharge Date: 04/25/2024 09:44:00 AM ATTENTION: The Clinical Documentation Specialists (CDI) and [facility] Coding Staff appreciate your assistance in clarifying documentation. Please respond to the clarification below the line at the bottom and electronically sign. The CDI & [facility] Coding staff will review the response and follow-up if needed. Please note: Queries are made part of the Legal Health Record. If you have any questions, please contact the author of this message via ITS. Doctor/Provider: Fred Vega Your patient has Bloodpressureis 230/130 with respirations of 38, and a pulse of 94. Based on this information and the findings below, is there an additional diagnosis that is clinically appropriate for this patient? Patient history/risk factors: 73yo M, acute NSTEMI w OK Hx & stenting, malignant HTN, COPD, HLD, heavy smoker, underdosing of BP medication Clinical Indicators: 04/24 [id number] 187/95 193/111 EGFRAfAm 68 EGFRNonAf 59 Treatment: Bed rest. IV fluids. Serial EKGs and enzymes. IV heparin. Cardiology consult ordered but Pt left AMA. Is there an additional diagnosis that is clinically appropriate for this patient? Please check any/all that apply [ ] Hypertensive emergency [ ] Hypertension with renal involvement [ ] CHAD [ ] CKD stage [ ] No additional diagnosis/Not clinically significant [ ] Unable to determine [ ] Other, please specify (Template Last Reviewed: June 2022) MTDD
--- NOTE | 2024-05-03 05:47 | MISC ---
MISCELLANOUS REPORT Hypertensive emergency. MMODL / IJN: [id number] /
== END 2024-04-25 09:44 | disposition left against medical advice (07) | DRG 281 ==
LOC: EC 16:47 → 3SCARD 19:30
PROVIDERS: ADMIT Family Medicine; ATTEND Family Medicine
DX: I21.4 Non-ST elevation (NSTEMI) myocardial infarction (principal); I16.1 Hypertensive emergency; J44.9 Chronic obstructive pulmonary disease, unspecified; E78.00 Pure hypercholesterolemia, unspecified; F17.210 Nicotine dependence, cigarettes, uncomplicated; T50.906A Underdosing of unspecified drugs, medicaments and biological substances, initial encounter; Z91.148 Patient's other noncompliance with medication regimen for other reason; I10 Essential (primary) hypertension; I25.10 Atherosclerotic heart disease of native coronary artery without angina pectoris; R45.4 Irritability and anger; I25.2 Old myocardial infarction; Z95.5 Presence of coronary angioplasty implant and graft
CPT/HCPCS: 36415; 71046; 80053; 80061; 83735; 83880; 84484; 85025; 85610; 85730; 93005; 96365; 96366; 96375; 99291

== ENCOUNTER → 2024-09-03 | Outpatient (CLI) | payer MEDICARE ==
--- NOTE | 2024-09-03 11:41 | CA ---
Transthoracic Echo Report Name: Johnie Tirado Age: 73 Gender: M : 1950 Exam Date: 09/03/2024 10:41 Exam Location: [facility] Ht (in): 70 Wt (lb): 240 Ordering Physician: Fred Vega MD Attending/Referring Phys: Fred Vega MD [employer] Ambar Mendez, RD Procedure CPT: Indications: Z12.2 LUNG CA SCR F17.210 SMOKER I10 HTN R07.9 Cardiac Hx: Lung Cancer, Smoker, HTN Technical Quality: Fair Contrast 1: Total Dose (mL): Contrast 2: Total Dose (mL): MEASUREMENTS (Male / Female) Normal Values 2D ECHO LV Diastolic Diameter PLAX 4.1 cm 4.2 - 5.9 / 3.9 - 5.3 cm LV Systolic Diameter PLAX 2.6 cm IVS Diastolic Thickness 1.4 cm 0.6 - 1.0 / 0.6 - 0.9 cm LVPW Diastolic Thickness 1.4 cm 0.6 - 1.0 / 0.6 - 0.9 cm LV Relative Wall Thickness 0.7 RV Internal Dim ED PLAX 1.9 cm LVOT Diameter 2.2 cm LA Systolic Diameter LX 3.9 cm 3.0 - 4.0 / 2.7 - 3.8 cm LV Diastolic Volume MOD BP 83.4 cm??? 67 - 155 / 56 - 104 cm??? LV Systolic Volume MOD BP 35.9 cm??? 22 - 58 / 19 - 49 cm??? LV Ejection Fraction MOD BP 57.0 % >= 55 % LV Cardiac Index MOD BP 1633.3 cm???/min???m??? LV Diastolic Volume MOD 4C 81.1 cm??? LV Systolic Volume MOD 4C 41.1 cm??? LV Ejection Fraction MOD 4C 49.3 % LV Cardiac Index MOD 4C 1374.1 cm???/min???m??? LV Diastolic Length 4C 8.4 cm LV Systolic Length 4C 7.5 cm LV Diastolic Volume MOD 2C 85.5 cm??? LV Systolic Volume MOD 2C 27.9 cm??? LV Ejection Fraction MOD 2C 67.4 % LV Cardiac Index MOD 2C 1980.1 cm???/min???m??? LV Diastolic Length 2C 8.6 cm LV Systolic Length 2C 6.6 cm LA Volume 62.4 cm??? 18 - 58 / 22 - 52 cm??? LA Volume Index 26.5 cm???/m??? 16 - 28 cm???/m??? M-MODE Aortic Root Diameter MM 3.0 cm LA Systolic Diameter MM 3.6 cm LA Ao Ratio MM 1.2 AV Cusp Separation MM 1.0 cm DOPPLER AV Peak Velocity 244.4 cm/s AV Peak Gradient 23.9 mmHg AV Mean Velocity 174.6 cm/s AV Mean Gradient 13.5 mmHg AV Velocity Time Integral 53.1 cm LVOT Peak Velocity 102.5 cm/s LVOT Peak Gradient 4.2 mmHg LVOT Velocity Time Integral 25.0 cm LVOT Stroke Volume 98.8 cm??? LVOT Stroke Volume Index 43.8 ml/m??? LVOT Cardiac Index 3394.3 cm???/min???m??? AV Area Cont Eq vti 1.9 cm??? AV Area Cont Eq pk 1.7 cm??? MV Area PHT 2.4 cm??? Mitral E Point Velocity 70.9 cm/s Mitral A Point Velocity 96.1 cm/s Mitral E to A Ratio 0.7 MV Deceleration Time 316.2 ms FINDINGS Left Ventricle Left ventricular ejection fraction is estimated at 55-60%. Mildly increased septal wall thickness. No obvious regional wall motion abnormalities. Left ventricular cavity size normal. Right Ventricle Normal right ventricular size and function. Unable to estimate the right ventricular systolic pressure. Right Atrium Mild right atrial dilatation. Left Atrium Mildly increased left atrial volume. Mitral Valve No mitral stenosis, regurgitation or prolapse. Mild mitral regurgitation. No mitral stenosis. Aortic Valve Aortic valve not well visualized. Mild aortic stenosis with a peak gradient of 24 mmHg and a mean gradient of 14 mmHg. No aortic regurgitation. Tricuspid Valve Structurally normal tricuspid valve. Trace tricuspid regurgitation. Pulmonic Valve Structurally normal pulmonic valve. No pulmonic stenosis. Trace pulmonic regurgitation. Pericardium No pericardial or pleural effusion. Aorta Normal size aortic root and proximal ascending aorta. CONCLUSIONS LVEF 55 to 60% No obvious regional wall motion abnormality Mild concentric LVH Mild biatrial dilatation Mild MR Mild aortic stenosis, mean gradient 14 mmHg, calcified aortic valve No prior echo to compare with in database Previewed by: Dr Mauricio Basilio (Electronically Signed) Final Date: 03 September 2024 11:41
--- NOTE | 2024-09-03 11:50 | CTL ---
EXAMINATION TYPE: CT Low Dose Lung DATE OF EXAM ORDERED: 09/03/2024 COMPARISON: CTA chest 09/19/2018 CLINICAL INDICATION: Male, 73 years old with history of Z12.2 LUNG CA SCR F17.210 SMOKER I10 HTN R07. 9; PHH, lung CA screening, Lung cancer screening, History of Smoking/tobacco use. TECHNIQUE: Low dose computed tomography scan was performed through the chest at 1 mm thick sections a nd reconstructed images in multiple planes at 1 mm and [address] DLP: 140.[address] CTDI: 3.5 mGy Automated exposure control for dose reduction was used. CT DIAGNOSTIC QUALITY: Satisfactory FINDINGS: Nodules: Few scattered pulmonary nodules examples including a right lower lobe stable 3.3 mm pulmonary nodule (series 6, image 50). Stable left lower lobe 2.9 mm pulmonary nodule (series 6, image 35). Left lower lobe 3.1 mm) nodule (series 6, image 56). And left lower lobe 3.4 mm pulmonary nodule (series 6, michael ge 39). LUNGS: COPD: Severity: None Fibrosis: Severity: None Lymph nodes: None Other findings: Linear scarring within the right middle lobe. RIGHT PLEURAL SPACE: Effusion: None Calcification: None Thickening: None Pneumothorax: None LEFT PLEURAL SPACE: Effusion: None Calcification: None Thickening: None Pneumothorax: None HEART: Heart Size: Normal Coronary Calcification: Small Pericardial Effusion: None OTHER FINDINGS: Upper abdomen: Right hepatic dome calcified granuloma. Cholelithiasis with a gallstone in the neck me asuring up to 8 mm. Bony thorax: Mild multilevel degenerative disc disease and anterior osteophytosis. Supraclavicular region: None Other: Mild atherosclerotic calcification of the aorta and its branches. Minimal bilateral gynecomast ia. IMPRESSION: Few scattered pulmonary nodules measuring less than [address] LUNG RAD AND CT CHEST RECOMMENDATION: Lung-Rad 2 Benign Appearance or Behavior: Continue annual sc reening with LDCT in 12 months. S Modifier (other clinically significant findings): None [facility], , 09/03/2024 11:48 AM
--- NOTE | 2024-09-03 21:39 | US ---
EXAMINATION TYPE: US Aorta Screening DATE OF EXAM: 09/03/2024 COMPARISON: CT 10/25/2018 CLINICAL INDICATION: Male, 73 years old with history of Z12.2 LUNG CA SCR F17.210 SMOKER I10 HTN R07. 9; Smoker, AAA screening TECHNIQUE: Multiple sonographic images of the abdominal aorta are obtained with grayscale and color D oppler imaging. FINDINGS: EXAM MEASUREMENTS: Abdominal Aorta: Proximal: 3.2 x 2.7 cm Mid: 2.3 x 2.0 cm Distal: 1.9 x 2.1 cm Bifurcation: Gassed out, unable to visualize ENROLLMENT MANAGEMENT DIRECTOR NOTES: Ectatic aorta, proximal portion >3cm IMPRESSION: Mild aneurysm proximal abdominal aorta at 3.2 cm. 3.0 to 3.9 cm Abdominal aortic aneurysm. Recommendation: Repeat Ultrasound in 3 year per Society of V ascular Surgery Recommendations. [facility], , 09/03/2024 9:36 PM
== END | disposition home or self-care (01) ==
LOC: RADUSWWP 09:19
PROVIDERS: ATTEND Family Medicine
DX: Z12.2 Encounter for screening for malignant neoplasm of respiratory organs (principal); Z13.6 Encounter for screening for cardiovascular disorders; F17.210 Nicotine dependence, cigarettes, uncomplicated; I10 Essential (primary) hypertension; I71.40 Abdominal aortic aneurysm, without rupture, unspecified; R91.8 Other nonspecific abnormal finding of lung field; I35.0 Nonrheumatic aortic (valve) stenosis; I25.2 Old myocardial infarction
CPT/HCPCS: 71271; 76706; 93306